=== PATIENT | male | born 1985 ===

== ENCOUNTER 2017-09-13 16:54 | Emergency (ER) | payer MEDICARE, OTHER ==
[~2017-09-13] VITALS: Ht 172.7 cm; Wt 90.7 kg
[~2017-09-13 16:54] MED LIST: AMOX500 PO; AZIT250 PO; Amoxicillin500 MG PO; CLIN300 PO; COLC.6 PO; CRUTCH3 USE; CRUTCH4 USE; CYCL10 PO; Cyclobenzaprine5 MG PO; HYDACE5 PO; IBUP600 PO; IBUP800 PO; NAPR500 PO; NAPR550 PO; OMEP20ER PO; OXYACE5T PO; OXYACE7.5T PO; PENVK250 PO; PENVK500; PENVK500 PO; PROCODE120 PO; Peridex480 ML SS; RXCYCL10 PO; RXHYDACE PO; RXNAPNA550 PO; TRAM50 PO; Ultram50 MG PO; [UNRECOGNIZED DRUG - OTHER]
[2017-09-13] MEDS ORDERED: Amoxicillin875 MG PO (18:42)
[2017-12-11] MEDS ORDERED: Omeprazole20 M1 PO (08:12)
== END 2017-09-13 18:49 | disposition home or self-care (01) ==
LOC: ER 16:54
DX: H66.92 Otitis media, unspecified, left ear (principal)
CPT/HCPCS: 99283

== ENCOUNTER 2017-09-25 12:13 | Emergency (ER) | payer MEDICARE, OTHER ==
[~2017-09-25] VITALS: Ht 172.7 cm; Wt 99.8 kg
[~2017-09-25 12:13] MED LIST changes: +Amoxicillin875 MG PO
[2017-09-25] MEDS ORDERED: METH40 PO (12:31)
[2017-09-25] MEDS ORDERED: CEPH500 PO (13:44)
[2017-09-25] MEDS ORDERED: Bactrim Ds Tab1 EACH PO (13:44)
[2017-09-25] MEDS ORDERED: Ocuflox5 ML LEFTEYE (13:44)
[2017-12-11] MEDS ORDERED: Omeprazole20 M1 PO (08:12)
== END 2017-09-25 14:24 | disposition home or self-care (01) ==
LOC: ER 12:13
DX: J32.9 Chronic sinusitis, unspecified (principal); H60.92 Unspecified otitis externa, left ear; M10.9 Gout, unspecified; Z79.899 Other long term (current) drug therapy
CPT/HCPCS: 10060; 99283

== ENCOUNTER → 2017-09-26 | Outpatient (CLI) | payer MEDICARE, OTHER ==
[~2017-09-26] MED LIST changes: +Bactrim Ds Tab1 EACH PO; +CEPH500 PO; +METH40 PO; +Ocuflox5 ML LEFTEYE; +Omeprazole20 M1 PO; +Prednisone50 MG PO
== END | disposition home or self-care (01) ==
LOC: LAB 13:20
DX: H60.91 Unspecified otitis externa, right ear (principal)
CPT/HCPCS: 87070; 87077; 87147; 87186; 87205

== ENCOUNTER → 2017-09-30 | Outpatient (CLI) | payer MEDICARE, OTHER ==
[2017-09-30 11:21] LABS: Specimen Source URINE
[2017-10-01 02:34] LABS: Source Urine
== END ==
LOC: LAB 10:05
PROVIDERS: Nurse Practitioner Family
DX: N50.812 Left testicular pain (principal)
CPT/HCPCS: 87491; 87591

== ENCOUNTER 2017-12-11 06:59 | Day surgery (SDC) | payer MEDICARE, OTHER ==
[~2017-12-11] VITALS: Ht 172.7 cm; Wt 105.3 kg
[~2017-12-11 06:59] MED LIST changes: -Omeprazole20 M1 PO; -Prednisone50 MG PO
[2017-12-11] MEDS ORDERED: Omeprazole20 M1 (08:12)
== END 2017-12-11 09:20 | disposition home or self-care (01) ==
LOC: ORSCSDS 06:59
PROVIDERS: Internal Medicine Gastroenterology
PROC: 0DB68ZX Excision of Stomach, Via Natural or Artificial Opening Endoscopic, Diagnostic (ICD-10-PCS; principal; 2017-12-11 08:45)
DX: K21.9 Gastro-esophageal reflux disease without esophagitis (principal); K29.70 Gastritis, unspecified, without bleeding; K20.9 Esophagitis, unspecified; B19.20 Unspecified viral hepatitis C without hepatic coma; Z87.11 Personal history of peptic ulcer disease; Z79.899 Other long term (current) drug therapy
CPT/HCPCS: 88305; 88342; J0330; J1980; J2250; J2405; J7120

== ENCOUNTER 2017-12-21 19:06 | Emergency (ER) | payer MEDICARE, OTHER ==
[~2017-12-21] VITALS: Ht 172.7 cm; Wt 99.8 kg
[~2017-12-21 19:06] MED LIST changes: +Omeprazole20 M1 PO
[2017-12-21 19:45] LABS: BASOPHILS ABSOLUTE AUTO 0.05 K/mm3 (0.00-0.23); BASOPHILS PERCENT AUTO 1 % (0-2); EOSINOPHILS ABSOLUTE AUTO 0.34 K/mm3 (0.00-0.68); EOSINOPHILS PERCENT AUTO 5 % (0-6); Hematocrit 38.8 % (37.0-53.0); IMMATURE GRAN ABSOLUTE AUTO 0.01 K/mm3 (0.00-0.10); IMMATURE GRAN PERCENT AUTO 0 % (0-1); LYMPHOCYTES ABSOLUTE AUTO 2.76 K/mm3 (0.84-5.20); LYMPHOCYTES PERCENT AUTO 40 % (21-46); MONOCYTES PERCENT AUTO 7 % (4-13); Mean Corpuscular HGB 28.5 pg (26.0-34.0); Mean Corpuscular HGB Conc 33.5 g/dL (31.5-36.5); Mean Corpuscular Volume 85 fL (80-100); Mean Platelet Volume 9.1 fL (9.1-12.4); NEUTROPHILS ABSOLUTE AUTO 3.22 K/mm3 (1.96-9.15); NEUTROPHILS PERCENT AUTO 47 % (41-73); Platelet Count 252 K/mm3 (150-400); RDW Coefficient Variation 12.7 % (11.7-14.2); RDW Standard Deviation 39.3 fL (35.1-46.3); Red Blood Cell Count 4.56 M/mm3 (4.30-5.90); White Blood Cell Count 6.88 K/mm3 (4.00-11.30)
[2017-12-21 20:08] LABS: Alanine Aminotransfer (ALT/SGP 60 U/L (12-78); Albumin/Globulin Ratio 1.1 (0.8-1.8); Alk Phos 69 U/L (50-136); Anion Gap 5 mmol/L (6-16); Aspartate Aminotrans (AST/SGOT 48 U/L (12-37); Bilirubin, Total 0.4 mg/dL (0.1-1.0); Blood Urea Nitrogen 16 mg/dL (8-24); Bun/Creatinine Ratio 18.6 (12.0-20.0); CO2, Blood 29 mmol/L (21-32); Calcium, Blood 8.6 mg/dL (8.5-10.1); Chloride, Blood 107 mmol/L (98-108); Creatinine, Blood 0.86 mg/dL (0.60-1.20); Globulin, Blood 3.6 g/dL (2.2-4.0); Glomerular Filtration Rate >60 (60-); Glucose, Blood 82 mg/dL (70-99); Potassium, Blood 3.8 mmol/L (3.5-5.5); Sodium, Blood 141 mmol/L (136-145); Total Protein, Blood 7.6 g/dL (6.4-8.2); Troponin I <0.015 ng/mL (0.000-0.040)
[2017-12-21 20:52] LABS: Source, Urine Clean Catch
[2017-12-21 20:56] LABS: Appearance, Urine Clear (Clear); Bilirubin, Urine Neg (Neg); Blood, Urine Neg (Neg); Color, Urine Yellow (P-Yellow); Glucose Qualitative, Urine Neg (Neg); Ketones, Urine Neg (Neg); Leukocyte Esterase, Urine Neg (Neg); Nitrite, Urine Neg (Neg); Protein, Urine Neg (Neg); Urobilinogen, Urine 1+ (Normal)
== END 2017-12-21 21:56 | disposition home or self-care (01) ==
LOC: ER 19:06
PROVIDERS: Emergency Medicine
DX: R07.89 Other chest pain (principal); K21.9 Gastro-esophageal reflux disease without esophagitis; Z88.5 Allergy status to narcotic agent; Z79.899 Other long term (current) drug therapy
CPT/HCPCS: 36415; 71046; 80053; 81003; 84484; 85025; 93005; 93010; 96374; 99284; J1885

== ENCOUNTER 2018-02-22 20:52 | Emergency (ER) | payer MEDICARE, OTHER ==
[~2018-02-22] VITALS: Ht 172.7 cm; Wt 99.8 kg
[2018-02-22] MEDS ORDERED: Bactrim Ds Tab1 EACH PO (20:57)
[2018-02-22] MEDS ORDERED: Prednisone50 MG PO (21:49)
== END 2018-02-22 21:54 | disposition home or self-care (01) ==
LOC: ER 20:52
DX: M10.9 Gout, unspecified (principal); Z88.5 Allergy status to narcotic agent; Z79.899 Other long term (current) drug therapy
CPT/HCPCS: 99283

== ENCOUNTER → 2018-09-26 | Outpatient (CLI) | payer MEDICARE, OTHER ==
[~2018-09-26] MED LIST changes: +Prednisone50 MG PO
[2018-09-26 12:49] LABS: BASOPHILS ABSOLUTE AUTO 0.03 K/mm3 (0.00-0.23); BASOPHILS PERCENT AUTO 1 % (0-2); EOSINOPHILS ABSOLUTE AUTO 0.25 K/mm3 (0.00-0.68); EOSINOPHILS PERCENT AUTO 4 % (0-6); Hematocrit 35.6 % (37.0-53.0); Hemoglobin 11.9 g/dL (13.5-17.5); IMMATURE GRAN ABSOLUTE AUTO 0.02 K/mm3 (0.00-0.10); IMMATURE GRAN PERCENT AUTO 0 % (0-1); LYMPHOCYTES ABSOLUTE AUTO 2.28 K/mm3 (0.84-5.20); LYMPHOCYTES PERCENT AUTO 35 % (21-46); MONOCYTES ABSOLUTE AUTO 0.48 K/mm3 (0.16-1.47); MONOCYTES PERCENT AUTO 7 % (4-13); Mean Corpuscular HGB 28.7 pg (26.0-34.0); Mean Corpuscular HGB Conc 33.4 g/dL (31.5-36.5); Mean Corpuscular Volume 86 fL (80-100); Mean Platelet Volume 9.3 fL (9.1-12.4); NEUTROPHILS ABSOLUTE AUTO 3.51 K/mm3 (1.96-9.15); NEUTROPHILS PERCENT AUTO 53 % (41-73); Platelet Count 233 K/mm3 (150-400); RDW Standard Deviation 39.8 fL (35.1-46.3); Red Blood Cell Count 4.14 M/mm3 (4.30-5.90); White Blood Cell Count 6.57 K/mm3 (4.00-11.30)
[2018-09-26 13:06] LABS: Alanine Aminotransfer (ALT/SGP 34 U/L (12-78); Albumin, Blood 3.5 g/dL (3.4-5.0); Albumin/Globulin Ratio 0.8 (0.8-1.8); Alk Phos 77 U/L (40-126); Anion Gap 7 mmol/L (6-16); Aspartate Aminotrans (AST/SGOT 28 U/L (12-37); Bilirubin, Total 0.4 mg/dL (0.1-1.0); Blood Urea Nitrogen 12 mg/dL (8-24); Bun/Creatinine Ratio 13.5 (12.0-20.0); CO2, Blood 31 mmol/L (21-32); Calcium, Blood 9.1 mg/dL (8.5-10.1); Chloride, Blood 103 mmol/L (98-108); Creatinine, Blood 0.89 mg/dL (0.60-1.20); Globulin, Blood 4.2 g/dL (2.2-4.0); Glomerular Filtration Rate >60 (60-); Glucose, Blood 78 mg/dL (70-99); Sodium, Blood 141 mmol/L (136-145); Total Protein, Blood 7.7 g/dL (6.4-8.2)
== END | disposition home or self-care (01) ==
LOC: LAB EV 12:43 → LAB SHORT 12:43
PROVIDERS: Physician Assistant
DX: R10.11 Right upper quadrant pain (principal)
CPT/HCPCS: 80053; 83690; 85025

== ENCOUNTER 2018-11-03 08:04 | Day surgery (SDC) | payer MEDICARE, OTHER ==
[~2018-11-03] VITALS: Ht 172.7 cm; Wt 123.4 kg
--- NOTE | 2018-11-03 11:44 | NUR ---
11/03/18 1144 Mellisa Rodriguez ANCEF 3 GM IVPB GIVEN AT [address] YUEN.
--- NOTE | 2018-11-03 14:40 | NUR ---
Patient up to Ambulate independently. Gait steady. Discharge instructions reviewed with patient. Patient verbalizes understanding. Copy given to patient to take home. Patient States Post-Procedure ride home has been arranged. Discharged via wheelchair to private car for ride home.
== END 2018-11-03 22:42 | disposition home or self-care (01) ==
LOC: ORSCMMR 08:04 → ORD 10:00 → ORSCMMR 22:42
PROVIDERS: Surgery
PROC: BF031ZZ Plain Radiography of Gallbladder and Bile Ducts using Low Osmolar Contrast (ICD-10-PCS; principal; 2018-11-03 10:00)
PROC: 0FT44ZZ Resection of Gallbladder, Percutaneous Endoscopic Approach (ICD-10-PCS; principal; 2018-11-03 10:00)
DX: K80.11 Calculus of gallbladder with chronic cholecystitis with obstruction (principal); K21.9 Gastro-esophageal reflux disease without esophagitis; E66.01 Morbid (severe) obesity due to excess calories; Z68.41 Body mass index [BMI] 40.0-44.9, adult; Z79.899 Other long term (current) drug therapy
CPT/HCPCS: 74300; 87070; 87081; 88304; C1729; J0690; J1100; J1885; J2250; J2405; J3010; J7030; J7120

== ENCOUNTER 2019-01-15 17:18 | Emergency (ER) | payer MEDICARE, OTHER ==
[~2019-01-15] VITALS: Ht 172.7 cm; Wt 122.5 kg
[2019-01-15 18:04] LABS: BASOPHILS ABSOLUTE AUTO 0.02 K/mm3 (0.00-0.23); BASOPHILS PERCENT AUTO 0 % (0-2); EOSINOPHILS ABSOLUTE AUTO 0.17 K/mm3 (0.00-0.68); EOSINOPHILS PERCENT AUTO 3 % (0-6); Hematocrit 35.1 % (37.0-53.0); Hemoglobin 11.2 g/dL (13.5-17.5); IMMATURE GRAN ABSOLUTE AUTO 0.02 K/mm3 (0.00-0.10); IMMATURE GRAN PERCENT AUTO 0 % (0-1); LYMPHOCYTES ABSOLUTE AUTO 0.98 K/mm3 (0.84-5.20); LYMPHOCYTES PERCENT AUTO 18 % (21-46); MONOCYTES ABSOLUTE AUTO 0.37 K/mm3 (0.16-1.47); MONOCYTES PERCENT AUTO 7 % (4-13); Mean Corpuscular HGB 28.4 pg (26.0-34.0); Mean Corpuscular HGB Conc 31.9 g/dL (31.5-36.5); Mean Corpuscular Volume 89 fL (80-100); Mean Platelet Volume 10.1 fL (9.1-12.4); NEUTROPHILS ABSOLUTE AUTO 3.93 K/mm3 (1.96-9.15); NEUTROPHILS PERCENT AUTO 72 % (41-73); Platelet Count 180 K/mm3 (150-400); RDW Coefficient Variation 13.5 % (11.7-14.2); RDW Standard Deviation 44.6 fL (35.1-46.3); Red Blood Cell Count 3.95 M/mm3 (4.30-5.90); White Blood Cell Count 5.49 K/mm3 (4.00-11.30)
[2019-01-15] MEDS ORDERED: ONDA4ODT MM (19:08)
[2019-01-15 20:23] LABS: Alanine Aminotransfer (ALT/SGP 61 U/L (12-78); Albumin, Blood 3.8 g/dL (3.4-5.0); Albumin/Globulin Ratio 0.9 (0.8-1.8); Alk Phos 109 U/L (50-136); Anion Gap 5 mmol/L (6-16); Aspartate Aminotrans (AST/SGOT 59 U/L (12-37); Bilirubin, Total 0.3 mg/dL (0.1-1.0); Blood Urea Nitrogen 10 mg/dL (8-24); Bun/Creatinine Ratio 12.1 (12.0-20.0); CO2, Blood 30 mmol/L (21-32); Calcium, Blood 8.1 mg/dL (8.5-10.1); Chloride, Blood 103 mmol/L (98-108); Creatinine, Blood 0.83 mg/dL (0.60-1.20); Globulin, Blood 4.1 g/dL (2.2-4.0); Glomerular Filtration Rate >60 (60-); Glucose, Blood 94 mg/dL (70-99); Potassium, Blood 3.9 mmol/L (3.5-5.5); Sodium, Blood 138 mmol/L (136-145); Total Protein, Blood 7.9 g/dL (6.4-8.2)
== END 2019-01-15 21:14 | disposition home or self-care (01) ==
LOC: ER 17:18
PROVIDERS: Physician Assistant
DX: K52.9 Noninfective gastroenteritis and colitis, unspecified (principal); M10.9 Gout, unspecified; Z86.19 Personal history of other infectious and parasitic diseases; Z88.6 Allergy status to analgesic agent; Z79.899 Other long term (current) drug therapy
CPT/HCPCS: 36415; 80053; 83690; 85025; 96361; 96374; 96375; 99284-25; J2405; J2765; J7030

== ENCOUNTER → 2019-04-06 | Outpatient (CLI) | payer MEDICARE, OTHER ==
[~2019-04-06] MED LIST changes: +ONDA4ODT MM
== END ==
LOC: LAB 14:35 → LAB SHORT 14:35
DX: Z72.51 High risk heterosexual behavior (principal); R30.0 Dysuria
CPT/HCPCS: 87086

== ENCOUNTER → 2019-04-14 | Outpatient (CLI) | payer MEDICARE, OTHER ==
[2019-04-15 23:06] LABS: CHLAMYDIA TRACHOMATIS, NAA Negative (Negative); NEISSERIA GONORRHOEAE, NAA Negative (Negative)
== END | disposition home or self-care (01) ==
LOC: LAB UCHC 11:02 → LAB SHORT 11:02 → LAB 11:02
PROVIDERS: Nurse Practitioner Family
DX: R30.0 Dysuria (principal); Z72.51 High risk heterosexual behavior
CPT/HCPCS: 87491; 87591

== ENCOUNTER 2020-07-17 22:36 | Emergency (ER) | payer MEDICARE, OTHER ==
[~2020-07-17] VITALS: Ht 152.4 cm; Wt 90.7 kg
[~2020-07-17 22:36] MED LIST changes: -Percocet 5-3251 EACH PO
[2020-07-17] MEDS ORDERED: Percocet 5-3251 EACH PO (23:18)
== END 2020-07-17 23:48 | disposition home or self-care (01) ==
LOC: ER 22:36
DX: L02.511 Cutaneous abscess of right hand (principal); Z98.890 Other specified postprocedural states; Z88.6 Allergy status to analgesic agent; Z88.5 Allergy status to narcotic agent; Z79.899 Other long term (current) drug therapy
CPT/HCPCS: 10060; 99282-25

== ENCOUNTER → 2020-07-17 | Outpatient (CLI) | payer MEDICARE, OTHER ==
[~2020-07-17] MED LIST changes: +Percocet 5-3251 EACH PO
== END | disposition home or self-care (01) ==
LOC: LAB SHORT 16:29 → LAB EV 16:29
DX: S61.442A Puncture wound with foreign body of left hand, initial encounter (principal)
CPT/HCPCS: 87070; 87075; 87077; 87147; 87186; 87205

== ENCOUNTER → 2021-02-03 | Outpatient (CLI) | payer MEDICARE, OTHER ==
[~2021-02-03] MED LIST changes: +Percocet 5-3251 EACH PO
== END | disposition home or self-care (01) ==
LOC: LAB SHORT 12:00 → LAB 12:00
DX: L03.311 Cellulitis of abdominal wall (principal); L02.91 Cutaneous abscess, unspecified
CPT/HCPCS: 87070; 87075; 87077; 87147; 87186; 87205